=== PATIENT | female | born 2000 | race Caucasian/White ===

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

== ENCOUNTER 2022-02-17 02:04 | Emergency (ER) | payer BC ==
[~2022-02-17] VITALS: Ht 167.6 cm; Wt 90.9 kg
[~2022-02-17 02:04] MED LIST: DEPO-PROVER150 MG/M1 IM; LYSINE 500500 MG/TAB PO; VITAMIN B12 681 TAB PO
[2022-02-17 02:08] VITALS: TEMP 98.7
[2022-02-17] MEDS ORDERED: ALBUTEROL0.83 MG/ML IH (02:28)
[2022-02-17] MEDS ORDERED: PREDNISONE20 MG PO ×4 (02:28→03:56)
[2022-02-17] MEDS ORDERED: LEXAPRO 10MG10 MG PO (02:28)
[2022-02-17] MEDS ORDERED: IPRATROPIUM BROM3 M1 IH ×3 (03:24→03:55)
[2022-02-17 03:46] VITALS: BP 131/71; PULSE 96
== END 2022-02-17 03:56 | disposition home or self-care (01) ==
LOC: COL.ER 02:04
DX: J45.901 Unspecified asthma with (acute) exacerbation (principal)
CPT/HCPCS: J2930; J7030